=== PATIENT | female | born 1955 | race Caucasian/White ===

== ENCOUNTER → 2016-09-23 | Outpatient (CLI) | payer MEDICARE ==
[~2016-09-23] MED LIST: COUMADIN10 MG PO; COUMADIN5 MG PO; HYDROCODON-ACE1 EAC5 PO; LISINOPRIL-HCTZ1 T15 PO; LOVENOX100 MG/ML INJ; WARFARIN SODIU7.5 M1 PO; ZESTORETIC 20-1 EACH PO
--- NOTE | ~2016-09-23 | MY11 ---
[facility] A Service of [facility] & [facility] RADIOLOGY TEXT RESULTS PATIENT: GUILLERMO LANG LOCATION: [facility] : 55 UNIT #: [id number] AGE: [address]: Joseph Palomo MD SEX: F ORDER DR: [id number] [facility] [address] [place], [place] [address] [id number] O MR#: [id number] Acc #: [id number] NAME: GUILLERMO LANG : 1955 SEX: F STUDY DATE/TIME: 09/23/2016 11:34 UNIT: [facility] ROOM: STUDY DESCRIPTION: MY Mammogram Screening Dig Aftab Attending Physician: Joseph Palomo M.D. Ordering Physician: Joseph Palomo M.D. Primary Care Physician: Joseph Palomo M.D. MEDICAL IMAGING REPORT This report is preliminary unless electronic signature is present EXAM Bilateral digital screening mammogram with CAD, 09/23/2016. HISTORY 61-year-old female with no personal or family history of breast cancer. No current complaints. COMPARISON Patient states previous screening mammogram at [facility] 8-10 years ago. According to technologist note, that comparison study is not available. Therefore, the current examination serves as the patient's new baseline screening study. FINDINGS CC and MLO views were obtained of each breast, utilizing digital technique, and reviewed with an FDA-approved CAD device. Scattered fibroglandular densities are present bilaterally. There is focal asymmetry in the subareolar right breast, lateral hemisphere, CC view, without clear MLO correlate. Benign-appearing secretory calcifications are seen within the upper outer right breast, and to a lesser degree, upper outer left breast. No suspicious cluster of microcalcifications is identified. There is no architectural distortion. IMPRESSION Additional imaging required. Focal asymmetry is seen in the subareolar right breast, lateral hemisphere. No prior exams for comparison. While I suspect this may represent summation artifact, further evaluation with true ML view of the right breast, along with spot compression in the CC plane is recommended. If the density persists, diagnostic right breast ultrasound may be performed on the same date for complete evaluation. Patients over the age of 40 are entered into a reminder system with target STS. [facility] A Service of [facility] & [facility] RADIOLOGY TEXT RESULTS PATIENT: GUILLERMO LANG LOCATION: [facility] : 55 UNIT #: [id number] AGE: [address]: Joseph Palomo MD SEX: F ORDER DR: due date for the next mammogram. A result letter will also be sent to the patient. BIRADS: 0 Incomplete; need additional imaging evaluation and/or prior mammograms for comparison. Dictated by... Lilia Goldstein M.D. THIS IS AN ELECTRONICALLY VERIFIED REPORT Lilia Goldstein M.D. at 09/24/2016 7:08 AM SHAILESH/stacie TD: 09/23/2016 14:57 JOB #: [id number] MEDICAL IMAGING REPORT Page 1 of 1 COPY
== END | disposition home or self-care (01) ==
LOC: CWCC 09-16 12:30
DX: Z12.31 Encounter for screening mammogram for malignant neoplasm of breast (principal); N64.89 Other specified disorders of breast
CPT/HCPCS: G0202

== ENCOUNTER → 2016-09-30 | Outpatient (CLI) | payer MEDICARE ==
--- NOTE | ~2016-09-30 | MY8 ---
[facility] A Service of [facility] RADIOLOGY TEXT RESULTS PATIENT: GUILLERMO LANG LOCATION: [facility] : 55 UNIT #: [id number] AGE: [address]: Jsoeph Palomo MD SEX: F ORDER DR: [id number] [facility]. [place], [place] [address] [id number] O MR#: [id number] Acc #: [id number] NAME: GUILLERMO LANG : 1955 SEX: F STUDY DATE/TIME: 09/30/2016 15:08 UNIT: [facility] ROOM: STUDY DESCRIPTION: MY Mammogram Dx Dig Rt Attending Physician: Joseph Palomo M.D. Ordering Physician: Joseph Palomo M.D. Primary Care Physician: Joseph Palomo M.D. MEDICAL IMAGING REPORT This report is preliminary unless electronic signature is present EXAM Right breast digital diagnostic mammogram with CAD 09/30/2016 HISTORY Focal asymmetry in the right breast on previous screening mammogram for which additional diagnostic imaging was recommended. COMPARISON Screening mammogram 09/23/2016. There is no remote available study for correlation. FINDINGS True ML view was obtained of the right breast utilizing digital technique and reviewed with a FDA-approved CAD device. Scattered fibroglandular densities present in the right breast, greatest in the anterior third. Spot compression views were obtained in the MLO and CC planes, and the fibroglandular tissue appears to efface, without discrete or well-defined mass lesions identified. No associated architectural distortion. Benign secretory calcifications and vascular calcifications are present, without suspicious clustered microcalcification. IMPRESSION 1. Right breast BIRADS category 2. Benign findings. Patient is advised to return for routine bilateral screening mammogram cycle in 1 year. Patient is advised to continue monthly self-breast examination and annual physician physical examination. The findings were discussed with the patient via an language interpreter today in the radiology department. BIRADS: 2 Benign Finding. [facility] A Service of [facility] RADIOLOGY TEXT RESULTS PATIENT: GUILLERMO LANG LOCATION: [facility] : 55 UNIT #: [id number] AGE: [address]: Joseph Palomo MD SEX: F ORDER DR: Patients over the age of 40 are entered into a reminder system with target due date for the next mammogram. A result letter will also be sent to the patient. Dictated by... Lilia Goldstein M.D. THIS IS AN ELECTRONICALLY VERIFIED REPORT Lilia Goldstein M.D. at 10/03/2016 8:30 AM SHAILESH/elmer TD: 09/30/2016 18:39 JOB #: [id number] MEDICAL IMAGING REPORT Page 1 of 1 COPY
== END | disposition home or self-care (01) ==
LOC: CMAM 14:54
DX: R92.8 Other abnormal and inconclusive findings on diagnostic imaging of breast (principal)
CPT/HCPCS: G0206

== ENCOUNTER → 2016-10-15 | Day surgery (SDC) | payer MEDICARE ==
--- NOTE | ~2016-10-15 | OR ---
Unit #: [id number] #: [id number] Patient: GUILLERMO LANG [id number] [place], [place] [address] [id number] O MR#: [id number] NAME: GUILLERMO LANG ROOM: Date of Procedure: 10/15/2016 Admission Date: 10/15/2016 Surgeon: López Gandara Jr., M.D. : 1955 Attending Physician: López Gandara Jr., M.D. Primary Care Physician: Joseph Palomo M.D. OPERATIVE REPORT INDICATION FOR PROCEDURE The patient is a 61-year-old white female who is obese as well as deaf, who recently presented to the office, desiring to be set up for a screening colonoscopy. She has had no previous scopes. No rectal bleeding and no change in bowel habits. She was brought in this time after prep at home for this procedure. She understands the procedure including risks, including that of perforation and bleeding, and consents. PREOPERATIVE DIAGNOSIS Desired screening colonoscopy, rule out pathology. POSTOPERATIVE DIAGNOSIS Small polyp of the sigmoid colon and transverse colon, which were 1 to 2 mm in diameter that appeared benign as well as a very elongated tortuous colon. ANESTHESIA MAC anesthesia. PROCEDURE PERFORMED Flexible colonoscopy to the cecum with biopsies of small polyps of the transverse colon and the sigmoid colon. DESCRIPTION OF PROCEDURE The patient was positioned in Jara position with left side down. After being given MAC anesthesia, digital rectal examination was performed, which revealed no palpable mass or tenderness. No blood or stool within the rectal ampulla. The Olympus colonoscope was advanced through the anal canal up the rectum and retroflexed down to the area of the anorectal region. There was no evidence of any fissures and no significant evidence of internal hemorrhoids. The scope was then straightened and advanced up in the rectosigmoid and sigmoid and at approximately 25 cm, there was a small 1 to 2 mm polyp, which was biopsied and basically removed with 2 bites with the cold biopsy forceps without bleeding. The scope was then advanced up into the descending colon, around the splenic flexure, and the transverse colon. In the mid transverse colon, there was a small 1 to 2 mm polyp, which likewise was biopsied and removed with 2 bites with the cold biopsy forceps. Numerous manipulations were required to advance the scope to the right colon and down to the area of the cecum. There was no evidence of any injury or problems related to this. The patient did develop significant abdominal distention that went away with suctioning out all the air off the colon. The scope was slowly removed. There were Unit #: [id number] #: [id number] Patient: GUILLERMO LANG no other polyps, no tumors, cancer, or AVMs, no evidence of any colitis or acute diverticulitis. The caliber of the colon appeared normal throughout. The scope was removed. The patient tolerated the procedure well and discharged in satisfactory condition. Dictated by... López Gandara Jr., M.D. DELIA/collin TD: 10/16/2016 06:47 JOB #: [id number] OPERATIVE REPORT Page 1 of 1 X López Gandara MD X PROCEDURE OPERATIVE NOTE
== END | disposition home or self-care (01) ==
LOC: COPS 12:00
DX: Z12.11 Encounter for screening for malignant neoplasm of colon (principal); D12.3 Benign neoplasm of transverse colon; D12.7 Benign neoplasm of rectosigmoid junction; I10 Essential (primary) hypertension; E78.5 Hyperlipidemia, unspecified; E66.9 Obesity, unspecified; M19.90 Unspecified osteoarthritis, unspecified site; Z87.891 Personal history of nicotine dependence; Z88.8 Allergy status to other drugs, medicaments and biological substances; Z79.01 Long term (current) use of anticoagulants; Z79.899 Other long term (current) drug therapy; Z98.51 Tubal ligation status
CPT/HCPCS: 88305; J2250

== ENCOUNTER 2016-10-17 05:42 | Inpatient (IN) | payer MEDICARE ==
--- NOTE | ~2016-10-17 | DS ---
Unit #: [id number] #: [id number] Patient: GUILLERMO LANG [id number] [facility]. [place], [place] [address] [id number] I MR#: [id number] NAME: GUILLERMO LANG ROOM: 473 Age: 61 Sex: F Admission Date: 10/17/2016 : 1955 Discharge Date: 10/19/2016 Attending Physician: López Gandara Jr., M.D. Primary Care Physician: Joseph Palomo M.D. DISCHARGE SUMMARY ADMITTING DIAGNOSIS Incarcerated umbilical ventral hernia. SECONDARY DIAGNOSIS Large pelvic mass compatible with ovarian cancer. OPERATION ON THIS ADMISSION Diagnostic laparoscopy with laparoscopic ventral hernia repair and aspiration of ascitic fluid. [employer] DEMO SPECIALIST Dr. Duarte. BRIEF SUMMARY The patient is a 61-year-old white female who is deaf, who recently presented to the office with chronic incarcerated umbilical hernia. She was seen and evaluated and felt to be a candidate for repair of this. She was brought in at this time for this procedure and on physical examination was noted to have a large protuberant abdomen but otherwise no other specific abnormalities. She was morbidly obese. HOSPITAL COURSE The patient was admitted, underwent diagnostic laparoscopy with laparoscopic ventral hernia repair and she was noted to have a large pelvic mass, felt to be compatible with ovarian cancer. CT scan was performed and she was seen in consultation by Dr. Duarte, an oncologist, and it was felt she likely had ovarian cancer. Her CA125 is 1587 indicative of ovarian cancer. CA19-9 was normal. Her ascitic aspiration came back showing atypical cells. Postop, the patient has done well. She is tolerating a diet. Everything has been explained to her, either by writing or through an telemarketer supervisor with hand signs. The plan will be to discharge the patient home. She will be keeping her wounds clean and dry, limited lifting no more than 5-10 pounds and calling office for followup appointment next week. She will be following up with Dr. Duarte on Friday at 2 o'clock in his office. It has been discussed with him that she needs a gynecologic oncologist for (1) procedure. She will be given Florence 10 mg/325 one or two p.o. q.4-6 h. p.r.n. pain and resuming all of her home medications, keeping her wounds clean and dry. She is presently afebrile. Dictated by... López Gandara Jr., M.D. Unit #: [id number] #: [id number] Patient: GUILLERMO LANG DELIA/vero TD: 10/21/2016 11:34 JOB #: [id number] DISCHARGE SUMMARY Page 1 of 1 X Lóepz Gandara MD X DISCHARGE SUMMARY
--- NOTE | ~2016-10-17 | CT2 ---
[facility] A Service of [facility] & [facility] RADIOLOGY TEXT RESULTS PATIENT: GUILLERMO LANG LOCATION: [facility] 473-01 : 55 UNIT #: [id number] AGE: [address]: López Gandara MD SEX: F ORDER DR: [id number] [facility] [address] [place], [place] [address] [id number] I MR#: [id number] Acc #: [id number] NAME: GUILLERMO LANG : 1955 SEX: F STUDY DATE/TIME: 10/17/2016 17:25 UNIT: [facility] ROOM: [facility] STUDY DESCRIPTION: CT Abd and Pelv W Cont Attending Physician: López Gandara Jr., M.D. Ordering Physician: López Gandara Jr., M.D. Primary Care Physician: Joseph Palomo M.D. MEDICAL IMAGING REPORT This report is preliminary unless electronic signature is present EXAM CT abdomen and pelvis with contrast, 10/17/16. HISTORY 61-year-old female with diffuse abdominal pain and nausea since abdominal surgery this morning. Ventral hernia repair. COMPARISON None. TECHNIQUE Helical scan performed through the abdomen and pelvis following administration of IV contrast. Coronal and sagittal reformatted images. This CT exam was performed with one or more of the following radiation dose reduction techniques: automatic exposure control, adjustment of mA and/or kV according to patient size, and iterative reconstruction. FINDINGS Visualized lung bases demonstrate bibasilar atelectasis. The liver, spleen, pancreas, gallbladder, and both kidneys are within normal limits. There is nodularity of the left adrenal gland. This could be secondary to adrenal adenoma. This can be further evaluated with a nonemergent multiphase CT or MRI when the patient is clinically able. Right adrenal gland is within normal limits. Abdominal aorta normal in course and caliber without dissection. There is a large multiloculated fluid attenuation collection in the mid and lower abdomen just cephalad to the uterus. This measures at least 30.7 x 17.9 x 17.1 cm in size. This may represent expected postoperative change/seroma. Early abscess development is not excluded. Continued follow-up is suggested. No evidence of bowel obstruction. There is trace amount of free intraperitoneal air, likely secondary to recent surgery. [facility] A Service of [facility] RADIOLOGY TEXT RESULTS PATIENT: GUILLERMO LANG LOCATION: [facility] 473-01 : 55 UNIT #: [id number] AGE: [address]: López Gandara MD SEX: F ORDER DR: The urinary bladder and uterus appear otherwise unremarkable. There is small amount of free fluid in the pelvis. No acute bony abnormality. IMPRESSION 1. Large multiloculated fluid collection in the mid to lower abdomen, measuring at least 30.7 x 17.9 x 17.1 cm in size. This may represent expected postoperative change/seroma. Early abscess development is not completely excluded. Continued follow-up is suggested. Small amount of free intraperitoneal air also noted, likely postoperative. 2. No evidence of bowel obstruction. 3. Nodularity of the left adrenal gland. This may be secondary to underlying adrenal adenoma/adenomas. This can be further evaluated with a nonemergent multiphase CT or MRI when the patient is clinically able. 4. Bibasilar dependent atelectasis. Dictated by... Otis Hines M.D. THIS IS AN ELECTRONICALLY VERIFIED REPORT Otis Hines M.D. at 10/18/2016 9:10 AM Rosario TD: 10/17/2016 21:16 JOB #: [id number] MEDICAL IMAGING REPORT Page 1 of 1 COPY
--- NOTE | ~2016-10-17 | BMI ---
[facility] Nutrition Therapy DATE: 10/18/16 Patient: GUILLERMO LANG Physician: SHELLEY Address: [address] Room/Bed: [address] [place] [address], Zip: [place] [address] Admit Date: 10/17/16 Date of : [birth year] Height: 5 4.75 Weight: 242 110 HIGH BMI NOTE: DX: 61 Y.O. FEMALE ADMITTED FOR VENTRIAL HERNIA. ANTHROPOMETRICS: 5'4.75", WT: 242# (110 KG), BMI 40 DIET: CLEAR LIQUID INTERVENTION: 1. CLEAR LIQUID DIET RECOMMENDATIONS: 1. ONCE MEDICALLY FESAIBLE, ADVANCE DIET TO HEALTHY HEART +CONSISTENT CARBOHYDRATE TO PROMOTE GRADUAL WEIGHT LOSS TOWARDS A HEALTHY BMI (19.0-25.0) OR +/-10% IBW. RD WILL F/U PER PROTOCOL. Respectfully, JEFFREY PETTIT, ROAD MONKEY JUDY PEREZ MS, RD, LD Food and Nutritional Services [facility] cc: client file
--- NOTE | ~2016-10-17 | EKG ---
PATIENT: GUILLERMO LANG UNIT #: [id number] Ventricular Rate: 74 BPM Atrial Rate: 74 BPM P-R Interval: 184 ms QRS Duration: 88 ms Q-T Interval: 388 ms QTC Calculation(Bezet): 430 ms P [place]: 38 degrees Calculated R [place]: 52 degrees Calculated T [place]: 19 degrees Diagnosis Line: Normal sinus rhythm Diagnosis Line: Normal ECG Diagnosis Line: When compared with ECG of 02-SEP-2013 06:12, Diagnosis Line: Nonspecific T wave abnormality no longer evident Diagnosis Line: in Anterior leads Diagnosis Line: Confirmed by MOR RODRIGUEZ MD ([id number]) on 10/17/2016 Diagnosis Line: 6:47:42 PM INTERPRETING MD: JENNIFER CHAHAL
--- NOTE | ~2016-10-17 | CO ---
Unit #: [id number] #: [id number] Patient: GUILLERMO LANG [id number] [place], [place] [address] [id number] I MR#: [id number] NAME: GUILLERMO LANG ROOM: [facility] Age: 61 Sex: F Admission Date: 10/17/2016 : 1955 Attending Physician: López Gandara Jr., M.D. Primary Care Physician: Joseph Palomo M.D. Consultation Date: 10/17/2016 CONSULTATION REPORT REASON FOR EVAL Possible ovarian cancer. Please evaluate. HISTORY OF PRESENT ILLNESS The patient is a 61-year-old lady who is congenitally deaf so I had an indian nanny. She is just waking up after a drowsy sleep due to anesthetic but awakens very easily. We had a short discussion regarding the finding of possible ovarian cancer, which was a surprise to her, and that we are working it up with some markers and a CT scan and we will schedule an appointment for her as an outpatient. PAST MEDICAL HISTORY Negative for cancers. It is positive for ectopic , superficial thrombophlebitis and congenital deafness. SOCIAL HISTORY The patient is . The is also deaf and they will require an indian nanny. Nonsmoker. No alcohol usage. FAMILY HISTORY Negative for cancers. ALLERGIES No known allergies. CHRONIC MEDICATIONS 1. Hydrocholorothiazide. 2. Coumadin. 3. Zestoretic. REVIEW OF SYSTEMS Very limited due to the time constrain but mainly abdominal discomfort, distension and she thought it was all her due to the hernia. Otherwise, six or eight systems were within normal limits. PHYSICAL EXAMINATION Central obesity. Recent surgery with tender abdomen. No palpable nodes. Lungs clear. Lower extremities-1+ edema. Pelvic and breast exam was not performed. DIAGNOSTIC STUDIES LABORATORY: CBC: Hemoglobin 14.1, hematocrit 39.9, white count 6,800, platelets 207,000. Sodium 134, potassium 3.5, chloride 99, CO2 26, glucose 117, BUN 13, creatinine 0.8. Protime 10.1, INR one. Unit #: [id number] #: [id number] Patient: GUILLERMO LANG IMPRESSION A 61-year-old lady, who came in for hernia and colonoscopy, was found to have an ovarian mass arising from the pelvis which needs to be further evaluated. So, at this point, we are proceeding with a CT abdomen/pelvis with IV and p.o. contrast, CA 125, CEA, CA19-9, alpha fetoprotein and beta hCG today. I will see the patient and the in our office Friday and we will schedule an indian nanny for the hearing impaired and sign language and see the patient at 2 o'clock. Dictated by... Hira Duarte M.D. RHONDA/kameron TD: 10/17/2016 13:56 JOB #: [id number] CONSULTATION REPORT Page 1 of 1 X Hira Duarte MD X CONSULTATION REPORT
--- NOTE | ~2016-10-17 | OR ---
Unit #: [id number] #: [id number] Patient: GUILLERMO LANG [id number] [place], [place] [address] [id number] I MR#: [id number] NAME: GUILLERMO LANG ROOM: [facility] Date of Procedure: 10/17/2016 Admission Date: 10/18/2016 Surgeon: López Gandara Jr., M.D. : 1955 Attending Physician: López Gandara Jr., M.D. Primary Care Physician: Joseph Palomo M.D. OPERATIVE REPORT INDICATIONS FOR PROCEDURE The patient is a 61-year-old female, who recently presented to the office with an incarcerated umbilical hernia. This has been causing some discomfort and pain and was felt she needed this repaired. She was brought in this time for repair of this. She does have a large obese abdomen and is deaf from . PREOPERATIVE DIAGNOSIS Chronic incarcerated large umbilical hernia. POSTOPERATIVE DIAGNOSES Chronic incarcerated large umbilical hernia, also noting a large tumor in the lower portion of the abdomen, size of a cantaloupe with cystic projections. ANESTHESIA General with endotracheal intubation and 0.5% Marcaine with epinephrine locally. PROCEDURE PERFORMED Diagnostic laparoscopy with reduction and repair of incarcerated ventral hernia using a 4-1/2 inch round Ventralight mesh and aspirate of tumor in the lower abdomen. This was sent for cytology. DESCRIPTION OF PROCEDURE The patient was positioned in supine position. After being anesthetized and intubated, she was prepped and draped in routine fashion for repair of her hernia. Once she was asleep, her abdomen was palpated and there seemed to be a large mass in the lower portion of the abdomen. A 0.5 cm incision was made in the right lateral abdominal wall area and a 5-mm Optiview was introduced in the abdomen. The abdomen was inflated with CO2 gas. The camera was introduced into the abdomen. There was no evidence of any injury related to introduction of the Optiview. Brief intra-abdominal exploration was carried out. The patient was noted to have omental incarcerated umbilical hernia with approximately a 3 cm defect and the cystic mass with a large mass from the pelvic area, probably ovarian in nature. It was felt that the hernia should probably be reduced and repaired and that an aspirate taken from the mass itself and therefore, an 11-mm port was placed in the right lower quadrant abdominal wall area and a 5-mm port in the left upper and left lower quadrant areas under direct visualization. The omentum was then retracted down and using the hook cautery, the omentum was removed from the chronic Unit #: [id number] #: [id number] Patient: HAZLE,GUILLERMO incarcerated hernia. There was also some bloody ascites present in the lower abdomen. The defect was approximately 3 cm and was felt that a 4-1/2 inch mesh was indicated. A 4-1/2 inch Ventralight mesh was tacked in 4 quadrants with 0 Vicryl sutures as routine, soaked in antibiotic solution, placed intraabdominal. Using the Endo Close technique, it was brought up against the anterior abdominal wall covering the defect well and tacked in place with SecureStrap. After this was complete, needle aspirate was done on the cystic portion of the mass in the lower abdomen and the fluid sent for cytology. Additional ascitic fluid was suctioned out and sent for cytology. After hemostasis was noted and the falciform checked where it had been released with the hook cautery, there was no evidence of any bleeding. The fascia in the larger port site was then approximated using neoClose technique. CO2 was expressed from the abdomen and the port sites were injected with 0.5% Marcaine with epinephrine locally. The skin edges on all the port sites were injected with 0.5% Marcaine with epinephrine. Sterile dressings were applied externally. Estimated blood loss less than 50 mL. The patient received less than 1500 mL crystalloid solution during the procedure. Sponges and instruments counts were correct x3. No drains used. No complications. The patient was taken to the recovery room with stable vital signs in satisfactory condition. Dictated by... López Gandara Jr., M.D. JMB/collin TD: 10/18/2016 01:01 JOB #: [id number] OPERATIVE REPORT Page 1 of 1 X López Gandara MD X PROCEDURE OPERATIVE NOTE
[~2016-10-17 05:42] MED LIST changes: -HYDROCODON-ACE1 EAC5 PO
[2016-10-17 07:05] LABS: BUN/CREATININE RATIO 16.25; CALCIUM SERUM 8.9 mg/dL (8.4-10.2); CREATININE SERUM 0.8 mg/dL (0.6-1.4); GLOM FILT RATE Estimated 79.6 mL/min (>60); POTASSIUM 3.5 mmol/L (3.5-5.1)
[2016-10-17 07:26] LABS: PARTIAL THROMBOPLASTIN TIME 24.2 SECONDS (23.5-31.3); PROTHROMBIN TIME (PATIENT) 10.1 SECONDS (9.6-11.5)
[2016-10-18 04:31] LABS: HEMATOCRIT 44.2 % (35.0-45.0); HEMOGLOBIN 14.7 gm/dL (12.0-16.0); MEAN CELL VOLUME 86.1 FL (83-96); MEAN CORPUSCULAR HEMOGLOBIN 28.6 PG (28-34); MEAN CORPUSCULAR HGB CONC 33.2 g/dL (30-36); MEAN PLATELET VOLUME 8.4 FL (6.5-11.5); RED BLOOD COUNT 5.13 X10e (3.90-5.30); RED CELL DISTRIBUTION WIDTH 15.5 % (11.0-15.5); WHITE BLOOD COUNT 11.1 X10e3 (4.0-10.5)
[2016-10-18 05:04] LABS: ALBUMIN SERUM 4.1 g/dL (3.5-5.0); BILIRUBIN,TOTAL 0.9 mg/dL (0.2-2.0); CALCIUM SERUM 8.8 mg/dL (8.4-10.2); CREATININE SERUM 0.7 mg/dL (0.6-1.4); GLOM FILT RATE Estimated 93.5 mL/min (>60); POTASSIUM 3.4 mmol/L (3.5-5.1); PROTEIN TOTAL SERUM 7.1 g/dL (6.0-8.3)
[2016-10-19 05:34] LABS: CA 19-9 6 U/mL (<34); CA125 1587 U/mL (<35)
[2016-10-19] MEDS ORDERED: HYDROCODON-ACE1 EAC5 PO (09:32)
== END 2016-10-19 10:45 | disposition home or self-care (01) | DRG 354 ==
LOC: CSUR 05:42 → CPACUOF 09:25 → CSUR 09:25 → CPACUOF 10:07 → C4C 10:07 → CPACUOF 10-18 06:00 → CSUR 10-18 06:00 → C4C 10-19 10:45
PROVIDERS: Internal Medicine Medical Oncology; Surgery
PROC: 0WUF4JZ Supplement Abdominal Wall with Synthetic Substitute, Percutaneous Endoscopic Approach (ICD-10-PCS; principal; 2016-10-18)
PROC: 0WBF4ZX Excision of Abdominal Wall, Percutaneous Endoscopic Approach, Diagnostic (ICD-10-PCS; 2016-10-18)
DX: K42.0 Umbilical hernia with obstruction, without gangrene (principal); Z68.41 Body mass index [BMI] 40.0-44.9, adult; I10 Essential (primary) hypertension; C56.9 Malignant neoplasm of unspecified ovary; E66.9 Obesity, unspecified; E78.5 Hyperlipidemia, unspecified; Z79.01 Long term (current) use of anticoagulants; Z98.51 Tubal ligation status; H90.3 Sensorineural hearing loss, bilateral
CPT/HCPCS: 74177; 80048; 80053; 82105; 82378; 82947; 83735; 84703; 85027; 85610; 85730; 86301; 86304; 88108; 88305; 93005; 94760; 94761; J0330; J0690; J1650; J2250; J2270; J2405; J3010; Q9967